=== PATIENT | male | born 2000 | race Caucasian/White ===

== ENCOUNTER 2022-01-03 15:24 | Inpatient (IN) | payer BC ==
[~2022-01-03] VITALS: Ht 188 cm; Wt 75.9 kg
[2022-01-03 17:59] LABS: COLLECTION METHOD CLEAN CATCH
[2022-01-03 18:05] LABS: URINE APPEARANCE Clear (CLEAR/HAZY); URINE BLOOD Negative (NEGATIVE); URINE COLOR Amber (YELLOW); URINE GLUCOSE Negative (NEGATIVE); URINE KETONE TRACE (NEGATIVE); URINE NITRATE Positive (NEGATIVE); URINE PROTEIN(semi-quant) TRACE (NEGATIVE)
[2022-01-03 18:08] LABS: MUCOUS Present (NOT PRESENT); SQUAMOUS EPITHELIAL None Seen /hpf (0-10); URINE BACTERIA None Seen /hpf (NONE SEEN); URINE RBC 0-2 /hpf (0-2)
[2022-01-03 18:40] LABS: BASO % 0.5 % (0.0-2.0); EOS # 0.1 K/mm3 (0.0-0.7); EOS % 0.9 % (0.0-4.0); GRAN # 6.3 K/mm3 (1.4-6.5); GRAN % 71.6 % (42.2-75.2); HEMATOCRIT 49.7 % (42.0-52.0); HEMOGLOBIN 16.5 g/dl (13.5-18.0); LYMPH # 1.6 K/mm3 (1.2-3.4); LYMPH % 17.5 % (20.0-51.0); MEAN CELL VOLUME 88 fl (80.0-100.0); MEAN CORPUSCULAR HEMOGLOBIN 29 pg (27-31); MEAN CORPUSCULAR HGB CONC 33 g/dl (33.0-37.0); MEAN PLATELET VOLUME 11.6 fl (7.4-10.4); MONO # 0.8 K/mm3 (0.1-0.6); PLATELET COUNT 269 K/mm3 (130-400); RED BLOOD COUNT 5.65 M/mm3 (4.20-5.60); REDCELL DISTRIBUTION WIDTH-CV 12.2 % (11.5-14.5)
[2022-01-03 19:00] LABS: ALBUMIN 3.6 gm/dL (3.5-5.0); BILIRUBIN,TOTAL 4.2 mg/dL (0.2-1.2); CALCIUM 9.1 mg/dL (8.4-10.2); CREATININE, serum 1.25 mg/dL (0.72-1.25); POTASSIUM 3.8 mmol/L (3.5-4.5); TOTAL PROTEIN 6.5 gm/dL (6.2-8.1)
[2022-01-04 00:22] VITALS: BP 107/82; PULSE 122
[2022-01-04 03:33] VITALS: BP 108/46; PULSE 95
--- NOTE | 2022-01-04 06:14 | NUR ---
Patient arrived to medical unit from ER at approximately 2345. Alert and oriented x 4. Patient's skin juandiced. Peripheral INT to right forearm. Denies SOB and dyspnea at rest, does with some exertion. LS CTA. HR-tachycardia. Telemetry in place, sinus rhythm. Capillary refill less than 3 seconds. Non-tenting skin turgor. BSAx4. Denies abdominal pain and discomfort at this time. Does have 1+ edema BLE. Recieved IV Lasix per orders. Later delta SQ Lovenox per orders. Patient seemed a little frustrated, asking that staff not keep coming in and "messing with me for all this bullshit." Explained the purpose of medications and that it was important. Explained when staff would be in to recheck VS. When PCT did VS, patient allowed VS, except for temperature. Patient in bed with call light within reach at this time. Encouraged to call if he needs anything, or if he has any questions, needs, or concerns.
[2022-01-04 07:04] LABS: INR 1.5 (0.8-3.0); PROTHROMBIN TIME 17.6 SECONDS (9.7-12.8)
[2022-01-04 07:10] VITALS: BP 112/64; PULSE 94; TEMP 97.7
[2022-01-04 07:11] LABS: BASO % 0.4 % (0.0-2.0); EOS # 0.1 K/mm3 (0.0-0.7); EOS % 1.7 % (0.0-4.0); GRAN # 4.5 K/mm3 (1.4-6.5); GRAN % 62.5 % (42.2-75.2); HEMOGLOBIN 14.6 g/dl (13.5-18.0); LYMPH # 1.7 K/mm3 (1.2-3.4); MEAN CELL VOLUME 90 fl (80.0-100.0); MEAN CORPUSCULAR HEMOGLOBIN 29 pg (27-31); MEAN CORPUSCULAR HGB CONC 32 g/dl (33.0-37.0); MEAN PLATELET VOLUME 12.7 fl (7.4-10.4); MONO # 0.8 K/mm3 (0.1-0.6); MONO % 10.8 % (1.7-9.3); PLATELET COUNT 224 K/mm3 (130-400); RED BLOOD COUNT 5.03 M/mm3 (4.20-5.60); REDCELL DISTRIBUTION WIDTH-CV 12.3 % (11.5-14.5)
[2022-01-04 07:17] LABS: CALCIUM 8.4 mg/dL (8.4-10.2); CREATININE, serum 1.17 mg/dL (0.72-1.25); POTASSIUM 4.2 mmol/L (3.5-4.5)
--- NOTE | 2022-01-04 07:22 | NUR ---
VSS, PT A&O X4, PT ABLE TO MAKE NEEDS KNOWN, PT RESTING IN BED, DENIES PAIN, FALL PRECAUTIONS IN PLACE, CALL LIGHT IN REACH
[2022-01-04 07:32] LABS: ALBUMIN 2.7 gm/dL (3.5-5.0); BILIRUBIN,DIRECT 1.1 mg/dL (0.0-0.5); BILIRUBIN,TOTAL 3.2 mg/dL (0.2-1.2); TOTAL PROTEIN 4.9 gm/dL (6.2-8.1)
[2022-01-04 11:12] VITALS: BP 119/67; PULSE 95; TEMP 98.2
[2022-01-04 11:13] VITALS: BP 119/67; PULSE 94; TEMP 98.2
[2022-01-04 13:00] LABS: PARTIAL THROMBOPLASTIN TIME 32.8 SECONDS (26.0-37.0)
--- NOTE | 2022-01-04 13:00 | NUR ---
PT'S D-DIMER ELEVATED, DR. BOO NOTIFIED
--- NOTE | 2022-01-04 13:07 | NUR ---
Initial visit; Patient doing well, ready to be discharged. He and his mom thanked [employer] for stopping and offering God's blessings.
--- NOTE | 2022-01-04 15:09 | NUR ---
[facility] TRANSFER TEAM CALLED AND ARE UNABLE TO ACCEPT PT DUE TO NOT HAVING ANY BEDS AVAILABLE, PHONE NUMBER FOR TRANSFER TEAM [phone]
[2022-01-04 15:26] VITALS: BP 108/62; PULSE 104; TEMP 98
--- NOTE | 2022-01-04 17:27 | NUR ---
PT DISMISSED TO [facility] IN [place], REPORT CALLED TO RECEIVING ROHIT RICARDO AND GIVEN TO EMS, PT TRANSPORTED BY EMS, NO FURTHER CONCERNS
== END 2022-01-04 17:05 | disposition short-term general hospital (02) | DRG 299 ==
LOC: COL.ER 15:24 → MEDICAL 22:44
PROVIDERS: Internal Medicine; Internal Medicine Gastroenterology; Nurse Practitioner Primary Care; Student in an Organized Health Care Education/Training Program; ADMIT Student in an Organized Health Care Education/Training Program
DX: I82.210 Acute embolism and thrombosis of superior vena cava (principal); I50.21 Acute systolic (congestive) heart failure; I42.0 Dilated cardiomyopathy; J91.8 Pleural effusion in other conditions classified elsewhere; R18.8 Other ascites; Z20.822 Contact with and (suspected) exposure to COVID-19; I95.9 Hypotension, unspecified; I50.810 Right heart failure, unspecified; K76.1 Chronic passive congestion of liver
CPT/HCPCS: C9113; J1644; J1650; J1940; J7030; Q9967